=== PATIENT | female | born 1970 | race Caucasian/White ===

== ENCOUNTER 2016-10-10 17:13 | Emergency (ER) ==
[2016-10-10] MEDS ORDERED: DECADRON IM ONE (18:27)
[2016-10-10] MEDS ORDERED: BICILLIN L-A IM ONE (18:27)
--- NOTE | 2016-10-10 18:29 | PROVIDER DOCUMENTATION ---
HPI-EENT General - General Chief Complaint: Sore Throat Stated Complaint: SORE THROAT Time Seen by Provider: 10/10/16 18:21 Source: patient Allergies/Adverse Reactions: Patient Allergies Allergy/AdvReac Type Severity Reaction Status Date / Time No Known Allergies Allergy Verified 10/10/16 17:59 - History of Present Illness-EENT General Nature of Presenting Problem: 46 y/o WF c/o sore throat x 3 days. Pt states fever of 99F at home. States mild cough and ear pain. Reports pain with swallowing, but is still able to drink fluids. Denies sick contacts. Denies abd pain. Review of Systems - Adult - REVIEW OF SYSTEMS - ADULT Constitutional: reports: fever. denies: chills Eyes: reports: no symptoms reported. denies: blurred vision, double vision Ears, Nose, Mouth & Throat: reports: see HPI, ear pain, throat pain. denies: nose pain Cardiovascular: reports: no symptoms reported. denies: chest pain, palpitations Respiratory: reports: cough. denies: dyspnea on exertion, shortness of breath Gastrointestinal: reports: no symptoms reported. denies: abdominal pain, nausea , vomiting Genitourinary: reports: no symptoms reported. denies: dysuria, frequency Musculoskeletal: reports: no symptoms reported. denies: joint pain, joint swelling Integumentary: reports: no symptoms reported. denies: nail changes, rash Neurological: reports: no symptoms reported. denies: numbness, paresthesia Psychiatric: reports: no symptoms reported Endocrine: reports: no symptoms reported. denies: cold intolerance, heat intolerance Hematologic/Lymphatic: reports: no symptoms reported. denies: easy bruising, prolonged bleeding Allergic/Immunologic: reports: no symptoms reported All Other Systems: Reviewed and Negative Past History - Adult - PAST MEDICAL HISTORY-ADULT Review of Records: reports: Nursing Assessment Review, Medications Reviewed Cardiovascular: reports: hyperlipidemia - PRIOR SURGERIES/PROCEDURES Surgical/Procedure History: reports: hysterectomy, other (invetro fertilization , tubal ) - IMMUNIZATION STATUS Childhood Immunizations: See Nurse Assessment Flu Vaccine: See Nurse Assessment - SOCIAL HISTORY Smoking: cigarettes, less than 1 pack/day Provider spent 3-5 mins advising pt. on dangers of tobacco.: Discussed manners to quit use, and f/u contacts for add'l counseling. Physical Exam- EENT - Physical Exam EENT Initial Vital Signs Reviewed: Yes General Appearance: alert, mild distress Eye Exam: bilateral eye: normal inspection Ear Exam: bilateral ear: auricle normal, canal normal, TM normal Nasal Exam: normal inspection. negative: sinus tenderness Throat Exam: normal mouth inspection, tonsillar exudate, tonsillar swelling Neck: supple, normal inspection, lymphadenopathy Respiratory: lungs clear, normal breath sounds. negative: crackles, rales, rhonchi, stridor, wheezing Cardiovascular: regular rate, rhythm. negative: bradycardia, tachycardia Abdominal Exam: normal bowel sounds, non tender, soft. negative: distended, guarding, rigid Extremity: normal gait Integumentary: normal color, normal turgor, warm/dry Neurologic: negative: aphasia Psych/Mental Status: AL, normal mood/affect, normal thought content, normal thought process, oriented x 3 Departure - Departure Time of Disposition Order: 18:27 DIAGNOSIS: Strep pharyngitis Disposition: HOME 01 Certified Medical Emergency: Emergent Condition: Stable Additional Instructions: Take medications as directed. Follow up with PCP in 2-3 days for recheck. Return to ED if symptoms get worse. Tylenol or motrin for pain/fever. ED Follow Up Instructions: You have been treated by a care provider in the Emergency Department. These instructions are being provided to you so you can have an understanding of how to care for yourself upon discharge. Upon discharge from the Emergency Department, you are responsible for making arrangements for follow-up care by a physician of your choice. Take all prescribed medications as directed. Return to the Emergency Department immediately for any new or worsening symptoms. You may call the Physician Referral phone number at [phone] to obtain a list of Physicians who are taking new patients. Prescriptions: Diphenhyramine/Al&mg Oh/Lido [Mbx Solution] 15 ml MT 4XDAY PRN PRN #1 bottle PRN Reason: Pain Azithromycin [Zithromax] 500 mg PO DAILY #5 tablet Referrals: None,PCP [Primary Care Provider] - Attestation - Physician/ Mid-level Attestation Patient care was provided by Mid-level provider ([employer]/PA):: Yes Mid-level provider:: Sadaf Sanabria Mid-level documentation review:: The Mid-level provider documentation, treatment plan and medical decision making was reviewed by the physician who agrees with all treatment and medical decision making by the MLP.
[2016-10-10 19:07] VITALS: BP 114/60
== END 2016-10-10 19:00 | disposition home or self-care (01) ==
LOC: ED 17:13
DX: J02.0 Streptococcal pharyngitis (principal); R05 Cough; H92.09 Otalgia, unspecified ear; R13.10 Dysphagia, unspecified; R50.9 Fever, unspecified; E78.5 Hyperlipidemia, unspecified; F17.210 Nicotine dependence, cigarettes, uncomplicated; Z71.6 Tobacco abuse counseling; R59.1 Generalized enlarged lymph nodes
CPT/HCPCS: 87430; 96372; J0561